=== PATIENT | female | born 1990 | race Caucasian/White ===

== ENCOUNTER 2016-10-16 23:11 | Emergency (ER) | payer OTHER ==
[~2016-10-16 23:11] MED LIST: ACETAMINOPHEN; AMOXICILLIN; AURALGAN OTIC S10 M1 AS; BACTRIM DS TABL1 TA1 PO; BACTRIM DS TABL1 TAB PO; BENTYL10 MG PO; LEXAPRO PO; LOMOTIL TABLET1 TAB PO; NO MEDICATIONS; PHENERGAN PO; PHENERGAN25 MG PO; PYRIDIUM PO; ZITHROMAX PO; ZOFRAN ODT4 MG PO; ZOLOFT; [UNRECOGNIZED DRUG - OTHER] PO
[2016-10-16] MEDS ORDERED: BIRTH CONTROL PILL (23:17)
== END 2016-10-16 23:47 | disposition home or self-care (01) ==
LOC: SED 23:11
DX: S91.332A Puncture wound without foreign body, left foot, initial encounter (principal); Z23 Encounter for immunization; W22.8XXA Striking against or struck by other objects, initial encounter; Y92.9 Unspecified place or not applicable
CPT/HCPCS: 90471; 90715; 99283

== ENCOUNTER 2016-10-31 12:39 | Emergency (ER) | payer OTHER ==
--- NOTE | ~2016-10-31 | CT2 ---
[facility] A Service of [facility] & [facility] RADIOLOGY TEXT RESULTS PATIENT: JARED BERMUDEZ LOCATION: SED : [birth year] UNIT #: [id number] AGE: [address]: Elías Alonzo MD SEX: F ORDER DR: [id number] [address] [address] [id number] E MR#: [id number] Acc #: [id number] NAME: JARED BERMUDEZ : 1990 SEX: F STUDY DATE/TIME: 10/31/2016 14:19 UNIT: SED ROOM: STUDY DESCRIPTION: CT Abd and Pelv W Cont Attending Physician: Elías Alonzo M.D. Ordering Physician: Elías Alonzo M.D. Primary Care Physician: Elida Isbell M.D. MEDICAL IMAGING REPORT This report is preliminary unless electronic signature is present. EXAM CT abdomen and pelvis, 10/31 INDICATIONS Diarrhea with nausea and vomiting that started today. TECHNIQUE Axial images were obtained through the abdomen and pelvis following IV contrast administration. Multiplanar reformats were obtained. No comparison. This CT exam was performed with one or more of the following radiation dose reduction techniques: Automatic exposure control, adjustment of mA and/or kV according to patient size, and iterative reconstruction. FINDINGS ABDOMEN: Lung bases are clear, except for some minimal left lower lobe atelectasis. Gallbladder unremarkable. No biliary obstruction. No free fluid or adenopathy is seen. Solid organs are normal. The unopacified GI tract is normal. PELVIS: The appendix is normal, as is the remainder of the unopacified GI tract. Solid pelvic organs are normal. Urinary bladder is unremarkable. No free fluid is seen. There is a mixed, lytic and sclerotic lesion in the left proximal femur. This is probably a benign finding. I would suggest non-emergent MRI for followup purposes. IMPRESSION 1. No acute findings in the abdomen or pelvis. 2. Normal unopacified GI tract, including the appendix. 3. Mixed, lytic and blastic lesion in the proximal femur on the left. Non-emergent MRI recommended for followup. [facility] A Service of [facility] & [facility] RADIOLOGY TEXT RESULTS PATIENT: JARED BERMUDEZ LOCATION: [facility] [place] : [birth year] UNIT #: [id number] AGE: [address]: Elías Alonzo MD SEX: F ORDER DR: Dictated by... Amrik Sutherland Jr., M.D. THIS IS AN ELECTRONICALLY VERIFIED REPORT Amrik Sutherland Jr., M.D. at 11/01/2016 8:29 AM BERONCIA/larisa TD: 10/31/2016 23:07 JOB #: [id number] MEDICAL IMAGING REPORT Page 1 of 1
--- NOTE | ~2016-10-31 | CR106 ---
[facility] A Service of [facility] RADIOLOGY TEXT RESULTS PATIENT: JARED BERMUDEZ LOCATION: SED : [birth year] UNIT #: [id number] AGE: [address]: Elías Alonzo MD SEX: F ORDER DR: [id number] [address] [address] [id number] E MR#: [id number] Acc #: [id number] NAME: JARED BERMUDEZ : 1990 SEX: F STUDY DATE/TIME: 10/31/2016 15:15 UNIT: SED ROOM: STUDY DESCRIPTION: CR Femur 2 Views Lt Attending Physician: Elías Alonzo M.D. Ordering Physician: Elías Alonzo M.D. Primary Care Physician: Elida Isbell M.D. MEDICAL IMAGING REPORT This report is preliminary unless electronic signature is present. EXAM Left femur, 10/31/2016. HISTORY 26-year-old female with left femur bone lesion incidentally noted on CT abdomen and pelvis today. COMPARISON CT abdomen and pelvis, 10/31/2016. FINDINGS Four views of the left femur demonstrate a mixed lytic and sclerotic lesion extending diffusely throughout the left femur from the femoral neck to the distal femoral metaphysis. There are areas of endosteal scalloping in the mid shaft of the femur. No evidence of a pathologic fracture or periosteal reaction. There are patchy areas of ground-glass opacity throughout the lesion. 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 No bone lesions in the pelvis. Soft tissues are unremarkable. IMPRESSION Diffuse mixed lytic and sclerotic lesion throughout the left femur with patchy areas of ground-glass opacity and multifocal areas of endosteal scalloping in the mid shaft. No evidence of a pathologic fracture or periosteal reaction. No evidence of an associated soft tissue mass. 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 Dictated by... Tacho Casillas M.D. [facility] A Service [facility] RADIOLOGY TEXT RESULTS PATIENT: JOLLY,JARED SRIKANTH LOCATION: SED : [birth year] UNIT #: [id number] AGE: [address]: Elías Alonzo MD SEX: F ORDER DR: THIS IS AN ELECTRONICALLY VERIFIED REPORT Tacho Casillas M.D. at 11/01/2016 2:37 PM Zayda TD: 11/01/2016 01:36 JOB #: [id number] MEDICAL IMAGING REPORT Page 1 of 1
[~2016-10-31 12:39] MED LIST changes: +BIRTH CONTROL PILL
[2016-10-31 13:15] LABS: BASOPHIL# 0.1 X10e3 (0-0.3); BASOPHIL% 0.6 % (0-2.5); EOSINOPHIL# 0.1 X10e3 (0-0.7); EOSINOPHIL% 0.5 % (0.0-7.0); HEMOGLOBIN 13.7 gm/dL (12.0-16.0); LYMPHOCYTE# 0.4 X10e3 (1.0-3.5); LYMPHOCYTE% 2.9 % (17.0-45.0); MEAN CELL VOLUME 85.1 FL (83-96); MEAN CORPUSCULAR HEMOGLOBIN 29.2 PG (28-34); MEAN CORPUSCULAR HGB CONC 34.2 g/dL (30-36); MEAN PLATELET VOLUME 8.3 FL (6.5-11.5); MONOCYTE# 0.6 X10e3 (0-1.0); MONOCYTE% 4.6 % (3.0-12.0); NEUTROPHIL# 11.5 X10e3 (1.5-7.1); NEUTROPHIL% 91.4 % (40-75); PLATELET COUNT 237 X10e3 (140-420); RED CELL DISTRIBUTION WIDTH 13.3 % (11.0-15.5); WHITE BLOOD COUNT 12.6 X10e3 (4.0-10.5)
[2016-10-31 13:17] LABS: DIFF IND NO
[2016-10-31 13:23] LABS: URINE SOURCE CLEAN CATCH
[2016-10-31 13:26] LABS: URINE APPEARANCE CLEAR; URINE BILIRUBIN NEG (NEG); URINE BLOOD NEG (NEG); URINE COLOR YELLOW; URINE GLUCOSE NEG (NORM); URINE KETONE NEG (NEG); URINE NITRATE NEG (NEG); URINE PH 5.5 (5-8); URINE PROTEIN NEG (NEG); URINE SPECIFIC GRAVITY >=1.030 (1.003-1.035); URINE UROBILINOGEN 0.2 MG/DL (NORM)
[2016-10-31 13:32] LABS: URINE LEUKOCYTE ESTERASE NEG (NEG)
[2016-10-31 13:33] LABS: MICRO INDICATED? NO
[2016-10-31 13:37] LABS: ALBUMIN SERUM 4.2 g/dL (3.5-5.0); BILIRUBIN, DIRECT 0.1 mg/dL (0.0-0.2); BILIRUBIN,INDIRECT 0.6 mg/dL (0.0-0.9); BILIRUBIN,TOTAL 0.7 mg/dL (0.2-2.0); BUN/CREATININE RATIO 21.66; CALCIUM SERUM 8.7 mg/dL (8.4-10.2); CREATININE SERUM 0.6 mg/dL (0.6-1.4); GLOM FILT RATE Estimated 124.9 mL/min (>60); POTASSIUM 3.9 mmol/L (3.5-5.1); PROTEIN TOTAL SERUM 7.5 g/dL (6.0-8.3)
== END 2016-10-31 17:08 | disposition home or self-care (01) ==
LOC: SED 12:39
PROVIDERS: Emergency Medicine
DX: K52.9 Noninfective gastroenteritis and colitis, unspecified (principal); M85.052 Fibrous dysplasia (monostotic), left thigh; Z98.890 Other specified postprocedural states
CPT/HCPCS: 36415; 73552; 74177; 80048; 80076; 81003; 82150; 83690; 84703; 85025; 96361; 96374; 96375; 99284; C9113; J1885; J2405; Q9967